=== PATIENT | male | born 1950 | race Caucasian/White ===

== ENCOUNTER → 2021-09-07 | Outpatient (CLI) | payer MEDICARE ==
--- NOTE | 2021-09-07 15:00 | CT ---
EXAMINATION TYPE: CT ChestAbdPelvis w con DATE OF EXAM: 09/07/2021 COMPARISON: 08/18/2021 HISTORY: Prostate Cancer, suspected Mets CT DLP: 754.5 mGycm CONTRAST: CT scan of the chest, abdomen and pelvis is performed with Oral Contrast and with IV Contrast, patien t injected with 100 mL of Isovue 300. CT Chest: LUNGS: 6.5 mm pulmonary nodule right mid lung zone. 3.0 mm ulnar nodule left lower lobe. 3 mm pulmona ry nodule right lower lobe. MEDIASTINUM: There is subcarinal adenopathy with several enlarged lymph nodes measuring up to 1.7 cm. AP window adenopathy measuring 1.9 cm and 1.5 cm respectively. Right paratracheal adenopathy measuri ng up to 1.2 cm. Thoracic aorta is of normal caliber. The heart is not enlarged. HILAR STRUCTURES: Right hilar adenopathy measuring up to 2.1 cm. Left hilar adenopathy measuring up t o 1.9 cm. OTHER: No significant abnormality. CONTRAST CT ABDOMEN AND PELVIS FINDINGS: LIVER/GB: No calcified gallstones. No space occupying hepatic lesion. Biliary tree is of normal ca liber. PANCREAS: No inflammation. No distinct mass. SPLEEN: No splenic enlargement. No lesion seen. ADRENALS: 2.6 cm nodule left adrenal gland. Right adrenal gland is unremarkable. KIDNEYS/BLADDER: No hydronephrosis. No nephrolithiasis. No disctinct renal mass. BOWEL: Normal appendix. Normal bowel caliber. No inflammation. GENITAL ORGANS: Postoperative changes of the prostate gland. LYMPH NODES: Retroperitoneal adenopathy with left periaortic adenopathy measuring up to 4.7 cm. Aorto intracaval adenopathy measuring up to 1.9 cm. Adenopathy in the aortic bifurcation measures approxim ately 1.9 cm. Right common iliac adenopathy measuring 1.2 cm. Left common iliac adenopathy measuring 1 cm. Left external iliac adenopathy measuring 1.1 cm. Lymph node mass measuring 2 cm posterior to th e left psoas musculature at the pelvic inlet. AORTA: No significant abnormality. OSSEOUS STRUCTURES: T2 and T3 sclerotic osseous lesions compatible with metastatic disease. OTHER: No significant additional abnormality is seen. IMPRESSION: 1. Moderate hilar and mediastinal adenopathy. Moderate retroperitoneal adenopathy as discussed above. 2. A few small scattered pulmonary nodules. Metastatic disease is not excluded. 3. Left adrenal nodule. Metastatic lesion is not excluded. 4. Sclerotic T2 and T3 lesions compatible with metastatic disease.
== END | disposition home or self-care (01) ==
LOC: RADCTMAIN 09:37
PROVIDERS: ATTEND Internal Medicine Hematology & Oncology
DX: C61 Malignant neoplasm of prostate (principal); R59.0 Localized enlarged lymph nodes; R91.8 Other nonspecific abnormal finding of lung field; E27.8 Other specified disorders of adrenal gland; M89.8X8 Other specified disorders of bone, other site
CPT/HCPCS: 82565; 84520; 71260; 74177; 36415; Q9967 ×2

== ENCOUNTER → 2021-09-14 | Outpatient (CLI) | payer MEDICARE ==
--- NOTE | 2021-09-14 15:25 | NM ---
EXAMINATION TYPE: NM bone scan whole body DATE OF EXAM: 09/14/2021 COMPARISON: CT scan 09/07/2021 HISTORY: Prostate cancer Delayed whole-body scanning was performed following the injection of 22.1 mCi Tc 99m MDP. Images acq uired 3 hours post injection. FINDINGS: There is abnormal uptake involving the left sacrum, right pubic ramus. Abnormal uptake is seen scatte red throughout the lumbar, and thoracic spine as well as the bilateral rib cage. Findings are concord ant with the x-ray described findings of CT scan. There also is abnormal uptake involving the left hu merus and shoulder including the scapula. Findings are compatible with metastases which are not included in the [id number] of the CT scan. Additional findings a faint uptake involving the left ankle, bilateral knee likely post arthritic. IMPRESSION: 1. CT and nuclear medicine findings are concordant and compatible with bone metastases. 2. Additional findings which are outside the field of view of the CAT scan demonstrates abnormal upta ke involving the left humerus and shoulder including the scapula compatible with metastases.
== END | disposition home or self-care (01) ==
LOC: RADNMMAIN 10:41
PROVIDERS: ATTEND Internal Medicine Hematology & Oncology
DX: C61 Malignant neoplasm of prostate (principal); Z03.89 Encounter for observation for other suspected diseases and conditions ruled out; R93.7 Abnormal findings on diagnostic imaging of other parts of musculoskeletal system
CPT/HCPCS: 78306; A9503

== ENCOUNTER → 2023-03-30 | Outpatient (CLI) | payer MEDICARE ==
--- NOTE | 2023-03-30 14:14 | BD ---
EXAMINATION TYPE: Axial Bone Density DATE OF EXAM: 03/30/2023 CLINICAL HISTORY: 72 years old Male. ICD-10 CODE: C61 MALIGNANT NEOPLASM OF PROSTATE Height: 66 in Weight: 160 lbs RISK FACTORS HISTORY OF: Active: yes Lost more than 2 inches in height since high school: yes 5" MEDICATIONS: Additional Medications: calcium, vit d, vit c, fish oil, hormone amina, cholesterol med, Additional History: prostate cancer with radiation EXAM MEASUREMENTS: Bone mineral densitometry was performed using the [employer] System. Bone mineral density as measured about the Lumbar spine is: ----- L1-L4(G/cm2): 1.035 T Score Values are as follows: ----- L1: -1.5 ----- L2: -2.5 ----- L3: -1.8 ----- L4: 0.5 ----- L1-L4: -1.2 Z Score Values are as follows: ----- L1: -1.0 ----- L2: -2.1 ----- L3: -1.4 ----- L4: 0.9 ----- L1-L4: -0.8 Bone mineral density baseline Bone mineral density about the R hip (g/cm2): 0.717 Bone mineral density about the L hip (g/cm2): 0.760 T Score values are as follows: -----R Neck: -3.0 -----L Neck: -2.6 -----R Total: -2.3 -----L Total: -2.0 Z Score values are as follows: -----R Neck: -2.0 -----L Neck: -1.6 -----R Total: -1.8 -----L Total: -1.5 Bone mineral density baseline FRAX%s: The graph provided illustrates a 14.2% chance for a major osteoporotic fx and a 6.5% chance f or the hips probability for fx in 10 years time. IMPRESSION: Osteoporosis (T Score less than -2.5). There is increased fracture risk and therapy is usually indicated based on age. Re-Screen 1-2 years. NOTE: T-SCORE=SD OF THE YOUNG ADULT MEAN.
== END | disposition home or self-care (01) ==
LOC: RADBDWWP 12:06
PROVIDERS: ATTEND Internal Medicine Hematology & Oncology
DX: C61 Malignant neoplasm of prostate (principal); M81.0 Age-related osteoporosis without current pathological fracture; M85.89 Other specified disorders of bone density and structure, multiple sites; G89.3 Neoplasm related pain (acute) (chronic); Z71.3 Dietary counseling and surveillance
CPT/HCPCS: 77080